=== PATIENT | female | born 1955 | race Caucasian/White ===

== ENCOUNTER 2018-09-10 12:15 | Inpatient (IN) ==
[2018-09-10] MEDS ORDERED: ASPIRIN PO ONE (12:25)
--- NOTE | 2018-09-10 13:00 | EKG Report ---
Test Performed on : 09/10/2018 12:29:23 PM Test Reason : palpitations Blood Pressure : / mmHG Vent. Rate : 062 BPM Atrial Rate : 248 BPM P-R Int : 000 ms QRS Dur : 096 ms QT Int : 452 ms P-R-T Axes : 088 -34 110 degrees QTc Int : 458 ms Atrial flutter. with variable AV block. Left axis deviation Incomplete right bundle branch block Possible Anteroseptal infarct (cited on or before 04-APR-2015) ST & T wave abnormality, consider lateral ischemia Abnormal ECG When compared with ECG of 23-AUG-2016 19:12, Atrial flutter. has replaced Sinus rhythm. Left anterior fascicular block is no longer present Questionable change in initial forces of Anterolateral leads ST elevation has replaced ST depression in Inferior leads Unconfirmed Result
--- NOTE | 2018-09-10 13:37 | Diag Imaging Result Doc PS360 ---
EXAM: CHEST-2 VIEWS - 09/10/2018 HISTORY: palpitations TECHNIQUE: Chest two views COMPARISON: 08/23/2016 portable chest and 04/03/2016 chest two views FINDINGS: There is cardiomegaly. There is prosthetic aortic valve again seen. There is bilateral fibrosis/scarring, most prominent on the left, which appears progressive. There is stable right lower lung granuloma from old granulomatous disease. There are no other discrete acute changes identified. IMPRESSION: Cardiomegaly. Apparent progressive fibrosis/scarring, most prominent on the left. Electronically signed by Sunny Hawthorne 09/10/2018 1:34 PM
[2018-09-10 14:52] LABS: BASO# 0.04 X1000 (0.0-0.2); BASO% 0.3 % (0.0-0.8); EOS# 0.22 X1000 (0.0-0.7); EOS% 1.7 % (0.0-10.0); HEMATOCRIT 38.6 % (37.0-47.0); HEMOGLOBIN 12.1 g/dL (12.0-16.0); IMM GRAN# 0.03 X1000 (0.0-0.04); IMM GRAN% 0.2 % (0.0-0.5); LYMPH# 1.73 X1000 (1.2-3.4); LYMPH% 13.2 % (20.5-51.1); MCH 26.2 PG (27-31); MCHC 31.3 g/dL (33-37); MCV 83.5 FL (81-99); MONO# 0.78 X1000 (0.11-0.59); MONO% 5.9 % (1.7-9.3); MPV 10.2 FL (7.4-10.4); NEUT# 10.34 X1000 (1.4-6.5); NEUT% 78.7 % (42.2-75.2); PLT 313 X1000 (130-400); RBC 4.62 XMIL (4.2-5.4); RDW 17.1 % (11.5-14.5); WBC 13.14 X1000 (4.8-10.8)
[2018-09-10 15:04] LABS: INR 2.22; PROTIME 26.2 Seconds (11.0-16.0)
[2018-09-10 15:05] LABS: PTT 58.4 Seconds (22.3-41.8)
[2018-09-10 15:22] LABS: AGAP 10; ALB/GLOB RATIO 1.5; ALBUMIN 4.5 g/dL (3.5-5.0); ALKALINE PHOSPHATASE 103 U/L (32-104); BUN 17 mg/dL (8-22); CALCIUM 9.1 mg/dL (8.8-10.2); CHLORIDE 101 mmol/L (98-107); CK PROFILE 56 U/L (24-173); COSMO 277; CREATININE 0.7 mg/dL (0.5-0.9); ESTIMATED GFR > 60; GLUCOSE 93 mg/dL (70-104); GOT 16 U/L (10-30); GPT 10 U/L (10-36); MAGNESIUM 2.3 mg/dL (1.5-2.7); POTASSIUM 4.2 mmol/L (3.5-5.1); SODIUM 138 mmol/L (136-145); TCO2 27 mmol/L (25-35); TOTAL BILIRUBIN 1.72 mg/dL (0.20-1.00); TOTAL PROTEIN 7.6 g/dL (6.3-8.3)
--- NOTE | 2018-09-10 16:33 | PROVIDER DOCUMENTATION ---
This chart was entered by Courtney Landis Scribe, acting as scribe for Robert Harrell MD. HPI-Cardiac General - General Chief Complaint: Palpitations Stated Complaint: SOB,HEART OUT OF RHYTHM,HIGH BP Time Seen by Provider: 09/10/18 13:02 Source: patient Allergies/Adverse Reactions: Patient Allergies Allergy/AdvReac Type Severity Reaction Status Date / Time codeine AdvReac NAUSEA/VOMI Verified 09/10/18 14:18 TING Home Medications: Home Medication List Medication Instructions Recorded Confirmed Last Taken Type Alprazolam [Xanax] 1 mg PO HS 04/04/15 09/10/18 08/23/16 History Digoxin 125 mcg PO QHS 04/04/15 09/10/18 08/22/16 History Sotalol HCl [Sotalol AF] 120 mg PO BID 04/04/15 09/10/18 04/05/15 05:00 History Warfarin Sodium [Coumadin] 5 mg PO DIRECTED 04/04/15 09/10/18 08/22/16 History Warfarin [Coumadin] 7.5 mg PO DIRECTED 04/04/15 09/10/18 08/23/16 History Furosemide [Lasix] 20 mg PO DAILY #30 tablet 04/07/15 09/10/18 08/22/16 Rx Albuterol [Albuterol Neb] 1 inh INH TID 09/10/18 09/10/18 Unknown History Amlodipine [Norvasc] 1 tab PO QHS 09/10/18 09/10/18 Unknown History Hydralazine [Apresoline] 50 mg PO TID 09/10/18 09/10/18 Unknown History PRAVAstatin [Pravachol] 40 mg PO DAILY 09/10/18 09/10/18 Unknown History - History of Present Illness-Cardiac Nature of Presenting Problem: Patient is a 63 year old female who presents to the ED with palpitations. Patient states palpitations started 2 days ago. Patient states history of A fib and mechanical aortic valve. Patient denies chest pain. She is on prn 2L [place] home , but notes for past couple of weeks she has falling sats @ noc and last night even on 3L ran 88&. Location: reports: [facility] Quality of Pain: reports: none Severity in ED: mild Onset/Duration: 2 days ago Timing: still present Context/Activities at Onset: reports: light activity Modifying Factors: improves with: nothing Palpitation Quality: irregular History of arrythmia: reports: A-Fib Recent use of:: reports: no stimulants Associated Symptoms: reports: denies symptoms Similar Symptoms Previously?: Yes (present for 2 days) Recently Seen Here or By Another Healthcare Provider: No Review of Systems - Adult - REVIEW OF SYSTEMS - ADULT Constitutional: reports: no symptoms reported Eyes: reports: no symptoms reported Ears, Nose, Mouth & Throat: reports: no symptoms reported Cardiovascular: reports: palpitations. denies: chest pain, heart murmur Respiratory: reports: no symptoms reported Gastrointestinal: reports: no symptoms reported Genitourinary: reports: no symptoms reported Musculoskeletal: reports: no symptoms reported Integumentary: reports: no symptoms reported Neurological: reports: no symptoms reported Psychiatric: reports: no symptoms reported Endocrine: reports: no symptoms reported Hematologic/Lymphatic: reports: no symptoms reported Allergic/Immunologic: reports: no symptoms reported All Other Systems: Reviewed and Negative Past History - Adult - PAST MEDICAL HISTORY-ADULT Review of Records: reports: Nursing Assessment Review, Medications Reviewed, Social history reviewed & non-contributory. Major Childhood Illnesses: reports: denies history Cardiovascular: reports: A-Fib (flutter), CHF, HTN, heart valve problem (aortic) , hyperlipidemia Respiratory: reports: asthma, COPD, sleep apnea Gastrointestinal: reports: denies history Obstetrical/Gynecological: reports: denies history Genitourinary: reports: denies history Musculoskeletal: reports: denies history Neurological: reports: denies history Psychiatric: reports: denies history Endocrine/Immune: reports: denies history Other Conditions: reports: denies history - PRIOR SURGERIES/PROCEDURES Surgical/Procedure History: reports: hysterectomy, , other (aortic valve replacement) - IMMUNIZATION STATUS Childhood Immunizations: See Nurse Assessment Flu Vaccine: See Nurse Assessment - FAMILY HISTORY Family History: reviewed, not pertinent - SOCIAL HISTORY Smoking: cigarettes (former) Substance Use: denies Living Situation: family Physical Exam-General - PHYSICAL EXAM-ADULT Initial Vital Signs Reviewed: Yes - CONSTITUTIONAL General Appearance: alert, no apparent distress - HEAD, EARS, NOSE, MOUTH & THROAT HENMT: moist mucous membranes, normal ENT inspection - RESPIRATORY Respiratory: chest non-tender, lungs clear, normal breath sounds - CARDIOVASCULAR Cardiovascular: irregularly irregular - GASTROINTESTINAL (ABDOMEN) Abdominal Exam: normal bowel sounds, non tender, soft - MUSCULOSKELETAL Extremity: non-tender, normal inspection - SKIN Integumentary: normal color, normal turgor, warm/dry - NEUROLOGIC Neurologic: grossly normal - PSYCHIATRIC Psych/Mental Status: normal mood/affect, oriented x 3 Progress - PLAN OF CARE/RESULTS Progress/Plan/Lab Results: Vital Signs - 8 hr 09/10/18 12:21 09/10/18 13:51 09/10/18 13:57 Temperature 98.6 F Pulse Rate 81 63 63 Respiratory Rate 20 21 Blood Pressure 156/56 152/82 O2 Sat by Pulse Oximetry 89 L 99 99 09/10/18 14:00 09/10/18 14:02 09/10/18 14:10 Temperature Pulse Rate 63 63 116 H Respiratory Rate 18 19 Blood Pressure 155/69 O2 Sat by Pulse Oximetry 99 98 99 09/10/18 14:20 09/10/18 14:30 09/10/18 14:40 Temperature Pulse Rate 63 63 63 Respiratory Rate 19 22 15 Blood Pressure O2 Sat by Pulse Oximetry 99 98 98 Laboratory Results - last 24 hr 09/10/18 09/10/18 09/10/18 14:39 14:39 14:39 WBC 13.14 H RBC 4.62 Hgb 12.1 Hct 38.6 MCV 83.5 MCH 26.2 L MCHC 31.3 L RDW Std Deviation 17.1 H Plt Count 313 MPV 10.2 Immature Gran % (Auto) 0.2 Neut % (Auto) 78.7 H Lymph % (Auto) 13.2 L Rains % (Auto) 5.9 Eos % (Auto) 1.7 Baso % (Auto) 0.3 Immature Gran # (Auto) 0.03 Neut # (Auto) 10.34 H Lymph # (Auto) 1.73 Rains # (Auto) 0.78 H Eos # (Auto) 0.22 Baso # (Auto) 0.04 PT INR PTT (Actin FS) Sodium 138 Potassium 4.2 Chloride 101 Carbon Dioxide 27 Anion Gap 10 BUN 17 Creatinine 0.7 Estimated GFR/1.73 m2 > 60 BUN/Creatinine Ratio 24 Glucose 93 Calculated Osmolality 277 Calcium 9.1 Magnesium 2.3 Total Bilirubin 1.72 H AST 16 ALT 10 Alkaline Phosphatase 103 Creatine Kinase 56 Troponin T Vtm-T-Rgbyahhyrnt Pept Total Protein 7.6 Albumin 4.5 Globulin 3.1 Albumin/Globulin Ratio 1.5 Digoxin 0.4 L 09/10/18 09/10/18 09/10/18 14:39 14:39 14:39 WBC RBC Hgb Hct MCV MCH MCHC RDW Std Deviation Plt Count MPV Immature Gran % (Auto) Neut % (Auto) Lymph % (Auto) Rains % (Auto) Eos % (Auto) Baso % (Auto) Immature Gran # (Auto) Neut # (Auto) Lymph # (Auto) Rains # (Auto) Eos # (Auto) Baso # (Auto) PT 26.2 H INR 2.22 PTT (Actin FS) 58.4 H Sodium Potassium Chloride Carbon Dioxide Anion Gap BUN Creatinine Estimated GFR/1.73 m2 BUN/Creatinine Ratio Glucose Calculated Osmolality Calcium Magnesium Total Bilirubin AST ALT Alkaline Phosphatase Creatine Kinase Troponin T < 0.010 Bma-[id number]-[id number] Pept 1795 H Total Protein Albumin Globulin Albumin/Globulin Ratio Digoxin Orders Category Date Time Status Cardiac Monitoring DIRECTED Care 09/10/18 12:25 Active Oxygen Therapy- ED Nursing DIRECTED Care 09/10/18 12:25 Active Saline Loc NOW Care 09/10/18 12:25 Active CHEST-2 VIEWS [RAD] Stat Exams 09/10/18 12:25 Completed CBC WITH ELECTRONIC DIFF [HEME] Stat Lab 09/10/18 14:39 Completed CK PROFILE [SP CHEM] Stat Lab 09/10/18 14:39 Completed COMPREHENSIVE METABOLIC PANEL [CHEM] Stat Lab 09/10/18 14:39 Completed DIGOXIN [TDM] Stat Lab 09/10/18 14:39 Completed MAGNESIUM [CHEM] Stat Lab 09/10/18 14:39 Completed PRO B-NATRIURETIC PEPTIDE Stat Lab 09/10/18 14:39 Completed PROTIME WITH INR [COAG] Stat Lab 09/10/18 14:39 Completed PTT [COAG] Stat Lab 09/10/18 14:39 Completed TROPONIN T Stat Lab 09/10/18 14:39 Completed Aspirin Med 09/10/18 12:25 Discontinued 325 mg PO NOW ONE CP/SOB/Palp >45 yrs of Age Stat Oth 09/10/18 12:25 Ordered EKG [EKG] Stat Ther 09/10/18 12:25 Draft Result Diagrams: 09/10/18 14:39 09/10/18 14:39 - REASSESSMENT Reassessment #1 Time Reassessed: 16:30 Status: unchanged (most labs are unremarkable except BNP has > doubled since last assay. Dig and INR both sub-therapeutic. remains in aflutter w/ block. will consult for admission for stabilization of rhythm and meds, CHF.) - EKG 1 Time of EKG reading by physician:: 12:29 EKG Read and Signed by:: Robert Harrell EKG Interpretation (*Must complete 3 of following elements*): Abnormal (ST & T wave abnormality, consider lateral ischemia) Rate: 62 Rhythm: atrial flutter with variable AV block [place]: left QRS: RBB (incomplete) Comments: possible anteroseptal infarct, age undetermined; - XRAY 1 XRAY Study: Chest Impression: See EMR Report ( EXAM: CHEST-2 VIEWS - 09/10/2018 HISTORY: palpitations TECHNIQUE: Chest two views COMPARISON: 08/23/2016 portable chest and 04/03/2016 chest two views FINDINGS: There is cardiomegaly. There is prosthetic aortic valve again seen. There is bilateral fibrosis/scarring, most prominent on the left, which appears progressive. There is stable right lower lung granuloma from old granulomatous disease. There are no other discrete acute changes identified. IMPRESSION: Cardiomegaly. Apparent progressive fibrosis/scarring, most prominent on the left. Electronically signed by Sunny Hawthorne 09/10/2018 1:34 PM 09/10/18 1334 Interpreting Physician: Sunny Hawthorne MD Dictated Date/Time: 09/10/18 1330 cc : Robert Harrell MD; None,PCP) - CONSULTS/PCP/HOSPITALIST Notification #1 *Consult/PCP/Hospitalist*: [facility] Time Discussed: 16:32 Consult Disposition: Admit Departure - Departure Date of Disposition Decision: 09/10/18 Time of Disposition Decision: 16:31 DIAGNOSIS: CHF (congestive heart failure), Dyspnea, Atrial flutter with controlled response Disposition: ADMITTED INPATIENT 09 Certified Medical Emergency: Emergent Condition: Stable Referrals and Follow-Ups: None,PCP [Primary Care Provider] - - Critical Care Note This patient required my direct & personal management of CC.: No Attestation - Physician/ CITLALI Attestation The physician spent face to face time with patient:: Yes Advanced Practice Provider documentation review:: Supervising physician onsite and consulted in the evaluation and care of this patient. The physician did have a face to face encounter with the patient. This chart was documented by the indicated scribe, (Courtney Landis Scribe) and accurately reflects the services I performed and decisions made by me, Robert Harrell MD, as attested by the provider's signature.
[2018-09-10] MEDS ORDERED: ZOFRAN IV PRN (16:56)
[2018-09-10] MEDS ORDERED: TYLENOL PO PRN (16:56)
[2018-09-10] MEDS ORDERED: LASIX IV ONE (17:01)
--- NOTE | 2018-09-10 17:41 | HISTORY AND PHYSICAL ---
HISTORY OF PRESENT ILLNESS: This is a 63-year-old who said really for the last 2 weeks she has had more dyspnea on exertion. Feels a little more short of breath. The 3 or 4 days seem to be worse. She feels like she might have some more orthopnea. She does not give any report of fever, chills or pleuritic pain. No real productive cough. No chest pain or tachy palpitation. PAST MEDICAL HISTORY: 1. Congestive heart failure diastolic dysfunction. So, I think she has congestive heart failure with normal ejection fraction. 2. Paroxysmal atrial fibrillation and flutter. 3. History of aortic valve replacement secondary to aortic stenosis. I think she has a mechanical valve. She is on anticoagulation. 4. Morbid obesity. 5. History of chronic obstructive pulmonary disease. 6. Obstructive sleep apnea. 7. Hypertension. 8. Hyperlipidemia. PAST SURGICAL HISTORY: 1. She has a mechanical aortic valve. 2. x2. 3. Repair of coarctation of aorta. SOCIAL HISTORY: Quit smoking, I think about 6 years ago. ALLERGIES: Codeine. REVIEW OF SYSTEMS: General: She does not give any report of fever, chills or change in weight. HEENT: No change in hearing or visual acuity reported. Neck: No neck pain. No cervical adenopathy. Respiratory: No upper airway congestion but she is more short of breath with exertion. Seems to have a little more orthopnea and feels a little more short of breath even at rest in the last couple weeks. It is more pronounced in the last 3 or 4 days. No pleuritic pain. No hemoptysis. Cardiovascular: No chest pain or tachy palpitation. GI/: No change in bowel habits. Endocrinologic/Hematologic: No significant history. PHYSICAL EXAMINATION: VITAL SIGNS: Today, temperature 98.6 degrees, pulse 63, respirations 15, blood pressure 155/69. HEENT: Pupils are equal and round. LUNGS: Clear in all lung rizo anterolateral and posterior. CARDIOVASCULAR: Regular rhythm and rate without murmur or S3. PMI nondisplaced. Her monitor shows atrial flutter, controlled rate in the 60s. Respirations 15. Blood pressure 155/69. ABDOMEN: Soft. She has trace edema in both lower extremities. She has superficial venous varicosities appreciated. Symmetrical in both lower extremities as well. LABORATORY DATA: White count 24436, hematocrit was 38, platelet count 313,000. Sodium 138, potassium 4.2, chloride 101, BUN 17, creatinine 0.7, calcium 9.1. AST is 16. ALT is 10. Troponin is less than 0.01. Pro time was 28. INR was 2.2, PTT is 58, digoxin level was 0.4. Chest x-ray: Cardiomegaly, apparently progressing fibrosis and scarring most prominent on the left. You can see the prosthetic aortic valve. I not see pulmonary venous hypertension. Status post right lower lobe granuloma with old granulomatous disease. History of diastolic dysfunction. Looking back at a myocardial perfusion scan on 10/08/2015. At that time it showed ejection fraction of 70% with normal ventricular volumes. No wall motion abnormalities. Echocardiogram done on 10/08/2015. Shows left ventricular systolic function at the lower limits of normal. Ejection fraction was 50 to 55 percent at that time. No wall motion abnormalities. She had mild to moderate enlarged right ventricle, both atrium mild to moderate enlargement. Normally functioning prosthetic aortic valve. No pericardial issues. ASSESSMENT AND PLAN: 1. She feels short of breath. More dyspnea. I do not see evidence of pulmonary venous hypertension. She does complain that she feels like her blood pressures are going a little higher so I guess we will go ahead and get cardiology to look and follow along. Her blood pressures at the present time look to be appropriate. She does not appear to need diuresis. By her echo and previous myocardial perfusion scan, she has normal left ventricular ejection fraction and possibly diastolic dysfunction. Her aortic valve seems to be working well. So, I will see if cardiology wants to see and maybe we need to explore the aortic valve again. She is on Coumadin. Anticoagulation looks good. 2. Mechanical aortic valve. She is on Coumadin. Her pro time is 26, INR is 2.2. 3. Atrial flutter. It appears she is in atrial flutter and so she may need cardioversion and that may be why she feels short of breath. Her rate is at 60. She is digoxin and sotalol. The digoxin level is low. 4. Morbid obesity. 5. History of chronic obstructive pulmonary disease. 6. History of obstructive sleep apnea. 7. Hypertension. 8. Hyperlipidemia. cc: Skyler Brock MD
[2018-09-10 17:44] LABS: ALLEN TEST YES; BE 1.7 mmoll (-3.0-3.0); BLOOD TYPE ARTERIAL; HCO3-(ACT) 26.2 mmoll (20.0-26.0); METHB 0.6 % (0.0-1.5); O2(CT) 17.2 mL/dL (15.0-23.0); O2HB 95.8 % (95.0-99.0); PCO2(98.6) 38 mmHg (35-45); PO2(98.6) 90 mmHg (60-100); SAMPLE BLOOD; SAO2 98.4 % (95.0-100.0); THB 12.7 g/dL (11.5-17.4); pH(98.6) 7.44 (7.35-7.45)
[2018-09-10 17:45] LABS: MODALITY CANNULA
[2018-09-10] MEDS: APRESOLINE PO SCH (18:00)
[2018-09-10] MEDS ORDERED: XANAX PO SCH (21:00)
[2018-09-10] MEDS ORDERED: COUMADIN PO SCH (21:00)
[2018-09-10] MEDS: DUONEB (A & A) INH SCH (21:00)
[2018-09-10] MEDS ORDERED: LANOXIN PO SCH (21:00)
[2018-09-10] MEDS ORDERED: NORVASC PO SCH (21:00)
[2018-09-10] MEDS: BETAPACE PO SCH (22:02)
[2018-09-11] MEDS: DUONEB (A & A) INH SCH (03:54)
[2018-09-11 07:23] LABS: INR 2.28; PROTIME 26.8 Seconds (11.0-16.0)
[2018-09-11 07:25] LABS: PTT 61.6 Seconds (22.3-41.8)
[2018-09-11 07:26] LABS: HEMOGLOBIN A1C 4.8 % (4.8-6.0)
[2018-09-11 07:34] LABS: AGAP 10; ALB/GLOB RATIO 1.4; ALKALINE PHOSPHATASE 89 U/L (32-104); BUN 17 mg/dL (8-22); CALCIUM 8.3 mg/dL (8.8-10.2); CHLORIDE 98 mmol/L (98-107); CK PROFILE 41 U/L (24-173); COSMO 275; CREATININE 0.8 mg/dL (0.5-0.9); ESTIMATED GFR > 60; GLUCOSE 91 mg/dL (70-104); GOT 13 U/L (10-30); GPT 9 U/L (10-36); MAGNESIUM 2.2 mg/dL (1.5-2.7); POTASSIUM 3.3 mmol/L (3.5-5.1); SODIUM 137 mmol/L (136-145); TCO2 29 mmol/L (25-35); TOTAL BILIRUBIN 1.66 mg/dL (0.20-1.00); TOTAL PROTEIN 6.9 g/dL (6.3-8.3)
[2018-09-11 07:38] LABS: BASO# 0.06 X1000 (0.0-0.2); BASO% 0.6 % (0.0-0.8); EOS# 0.24 X1000 (0.0-0.7); EOS% 2.4 % (0.0-10.0); HEMATOCRIT 36.6 % (37.0-47.0); HEMOGLOBIN 11.5 g/dL (12.0-16.0); IMM GRAN# 0.02 X1000 (0.0-0.04); IMM GRAN% 0.2 % (0.0-0.5); LYMPH# 2.04 X1000 (1.2-3.4); LYMPH% 20.1 % (20.5-51.1); MCH 26.3 PG (27-31); MCHC 31.4 g/dL (33-37); MCV 83.8 FL (81-99); MONO% 5.9 % (1.7-9.3); MPV 10.2 FL (7.4-10.4); NEUT% 70.8 % (42.2-75.2); PLT 304 X1000 (130-400); RBC 4.37 XMIL (4.2-5.4); RDW 16.8 % (11.5-14.5); WBC 10.16 X1000 (4.8-10.8)
[2018-09-11 07:43] LABS: BANDS 2 % (0-1); LYMPHS 18 % (21-51); MONO 4 % (1-9); SEGS 76 % (42-75)
[2018-09-11 08:01] LABS: FREE T4 1.33 ng/dL (0.93-1.70); TSH 3.86 uIUmL (0.27-4.20)
--- NOTE | 2018-09-11 08:08 | Diag Imaging Result Doc PS360 ---
EXAM: CHEST-2 VIEWS HISTORY: chf TECHNIQUE: Chest two views COMPARISON: 09/10/2014 FINDINGS: The heart is enlarged. The sternal wires and surgical clips. The lungs are well expanded. Mild increased interstitial markings throughout the lungs similar to the prior exam. Trace left pleural fluid versus pleural thickening. IMPRESSION: Stable chest. Electronically signed by Justin Miranda 09/11/2018 8:05 AM
[2018-09-11] MEDS ORDERED: LASIX PO SCH (09:00)
[2018-09-11] MEDS ORDERED: PRAVACHOL PO SCH (09:00)
[2018-09-11] MEDS: APRESOLINE PO SCH (09:38)
[2018-09-11] MEDS: BETAPACE PO SCH (09:38)
[2018-09-11 09:55] VITALS: BP 132/42
--- NOTE | 2018-09-11 10:53 | DISCHARGE SUMMARY ---
ADMISSION DATE: 09/10/2018 DISCHARGE DATE: 09/11/2018 PRIMARY CARE PHYSICIAN: None. HISTORY: A 63-year-old who said that for the last 2 weeks she feels like she has had more dyspnea on exertion and more short of breath, the last 3 to 4 days seems to be worse. She denies any fever, pleuritic pain or productive cough. She is on oxygen at home. She has COPD with chronic hypoxemia. PAST MEDICAL HISTORY: 1. Congestive heart failure. I think it is mainly diastolic. She has a normal ejection fraction and good left ventricular systolic performance. 2. Paroxysmal atrial fibrillation and flutter. Rate has been controlled. 3. History of aortic valve replacement secondary to aortic stenosis. She thinks she has mechanical valve. 4. Morbid obesity. 5. COPD with chronic hypoxemia. 6. Obstructive sleep apnea. 7. Hypertension. 8. Hyperlipidemia. ADMISSION DIAGNOSIS: She seemed to be more short of breath. X-ray and exam really did not reveal much in way of pulmonary hypertension or any infection, and so wondered about more subjective dyspnea. The blood gases showed pH was 7.44, pCO2 38, PO2 was 92. This was on 4 L nasal cannula. She had a pretty uneventful night. I did give her some Lasix. The x-ray on admission suggests stable chest x-ray. No infiltrates. Mild increased interstitial markings throughout the lungs, similar to prior exam and some pleural fluid versus subpleural thickening which is mild. She wanted to go home on 09/11/2018 so I will discharge her home. I will put her back on her same medications. DISCHARGE MEDICATIONS: She is on her albuterol inhaler t.i.d., Xanax 1 mg at bedtime, Norvasc I think it is a 5 mg daily, digoxin 125 mcg at bedtime, Lasix 20 mg p.o. daily, hydralazine 50 mg p.o. t.i.d., Pravachol 40 mg a day. Betapace: She takes 80 mg b.i.d. and she takes Coumadin 7.5 alternating with 5 mg every day. Her ProTime was 26 which is perfect so we will discharge her home and have her go back to her 2 L per nasal cannula. cc: Skyler Brock MD
--- NOTE | 2018-09-11 11:00 | PROGRESS NOTE ---
DATE: 09/11/2018 ADDENDUM: Note she is still in atrial flutter, and this is verified on EKG. She has 3-4:1 conduction. Blood pressure is doing well. She is already on sotalol. I did not see any sign of infection. She is wanting to go home. We will continue present medications. I do want her to follow up with Cardiology and will continue her O2 at 2 L. cc: Skyler Brock MD
[2018-09-11] MEDS ORDERED: COUMADIN PO SCH (21:00)
--- NOTE | 2018-09-13 08:56 | EKG Report ---
Test Performed on : 09/11/2018 07:08:50 AM Test Reason : aflutter Blood Pressure : / mmHG Vent. Rate : 058 BPM Atrial Rate : 249 BPM P-R Int : 000 ms QRS Dur : 094 ms QT Int : 422 ms P-R-T Axes : 094 -35 140 degrees QTc Int : 414 ms Atrial flutter. with variable AV block. Left axis deviation Possible Anteroseptal infarct (cited on or before 04-APR-2015) ST & T wave abnormality, consider lateral ischemia Abnormal ECG When compared with ECG of 10-SEP-2018 12:29, (Unconfirmed) ST now depressed in Inferior leads ST now depressed in Lateral leads T wave inversion more evident in Lateral leads Confirmed by Saturnino MULLER, Alpesh Parsons ([id number]) on 09/13/2018 3:27:36 PM
== END 2018-09-11 11:06 | disposition home or self-care (01) | DRG 292 ==
LOC: ED 12:15 → 3N 18:03
PROVIDERS: ATTEND Emergency Medicine
CPT/HCPCS: 36415; 71020; 71046; 80053; 80061; 80162; 82550; 82565; 82607; 82746; 82805; 83036; 83721; 83735; 83880; 84439; 84443; 84484; 84520; 85025; 85610; 85730; 93005; 93010; 93306; 94640; 94760; 96374; 99285; A9270; J1940